=== PATIENT | male | born 1955 | race Caucasian/White ===

== ENCOUNTER 2019-07-03 17:15 | Emergency (ER) | payer MEDICARE, OTHER ==
[~2019-07-03] VITALS: Ht 170.2 cm; Wt 65.0 kg
[2019-07-03 17:39] VITALS: Ht 170.2 cm; Wt 65.0 kg
[2019-07-03] MEDS ORDERED: DICLOFENAC SODI50 MG PO (19:32)
[2019-07-03] MEDS ORDERED: NEURONTIN 300300 MG PO (19:32)
[2019-07-03] MEDS ORDERED: CYCLOBENZAPRINE10 MG PO (19:32)
[2019-07-03 20:00] VITALS: BP 142/99
== END 2019-07-03 20:01 | disposition home or self-care (01) ==
LOC: D.ER 17:15
DX: Z76.0 Encounter for issue of repeat prescription (principal); G62.9 Polyneuropathy, unspecified; J44.9 Chronic obstructive pulmonary disease, unspecified; Z72.0 Tobacco use; R01.1 Cardiac murmur, unspecified